=== PATIENT | female | born 1950 | race Caucasian/White ===

== ENCOUNTER 2024-01-18 09:45 | Day surgery (SDC) | payer MEDICARE ==
[~2024-01-18] VITALS: Wt 72.0 kg
[2024-01-18] VITALS (15 sets, daily range): BP systolic 110–159; BP diastolic 42–68; PULSE 59–65; TEMP 97.4–98.1
[~2024-01-18 09:45] MED LIST: ASPIRIN 81M81 MG/TA2 PO; BETAPACE 80MG80 MG PO; CARDIZEM CD 12120 MG PO; K-DUR20 MEQ PO; LASIX 40MG TABL40 MG PO; PROTONIX 40MG T40 MG PO; ROXICODONE 55 MG/TAB PO; ZOFRAN ODT4 MG PO
[2024-01-18] MEDS ORDERED: ceFAZolin 1 G in Water For Injection,Sterile 10 ML IV SCH ×2 (10:00→20:00)
[2024-01-18] MEDS ORDERED: 1/2 NS 1,000 ML IV SCH (10:00)
[2024-01-18] MEDS ORDERED: XANAX XR0.5 MG PO (10:47)
[2024-01-18] MEDS ORDERED: ELIQUIS 5MG PO (10:48)
[2024-01-18] MEDS ORDERED: ELDERBERRY PO (10:48)
[2024-01-18] MEDS ORDERED: KLOR-CON 1010 MEQ PO (10:49)
[2024-01-18] MEDS ORDERED: BETAPACE 80MG80 MG PO (10:51)
[2024-01-18] MEDS ORDERED: CARAFATE 1GM1 G PO (10:51)
[2024-01-18 11:02] LABS: HEMATOCRIT 42.2 % (37.0-47.0); HEMOGLOBIN 14.1 g/dl (12.5-16.0); MEAN CELL VOLUME 90 fl (80.0-100.0); MEAN CORPUSCULAR HEMOGLOBIN 30 pg (27-31); MEAN CORPUSCULAR HGB CONC 33 g/dl (33.0-37.0); MEAN PLATELET VOLUME 10.2 fl (7.4-10.4); PLATELET COUNT 222 K/mm3 (130-400); RED BLOOD COUNT 4.67 M/mm3 (4.10-5.30); REDCELL DISTRIBUTION WIDTH-CV 13.2 % (11.5-14.5)
[2024-01-18 11:14] LABS: PROTHROMBIN TIME 10.8 SECONDS (9.7-12.8)
[2024-01-18 11:30] LABS: CALCIUM 9.6 mg/dL (8.4-10.2); CREATININE, serum 0.68 mg/dL (0.57-1.11)
[2024-01-18] MEDS ORDERED: NS 1,000 ML IV.SOLN. IR SCH (11:52)
--- NOTE | 2024-01-18 12:00 | NUR ---
See Merge report for procedural sedation/notes
[2024-01-18] MEDS ORDERED: Topical Skin Adhesive 1 EACH (1 ML) TOP ONE (12:05)
[2024-01-18] MEDS ORDERED: fentaNYL 50 MCG/ML 2 ML VIAL IV SCH (12:26)
[2024-01-18] MEDS ORDERED: Midazolam 2 MG/2 ML VIAL IV SCH (12:27)
--- NOTE | 2024-01-18 12:50 | NUR ---
REPORT RECIEVED FROM KARELY THOMAS.
[2024-01-18] MEDS ORDERED: Bisacodyl 5 MG TAB PO PRN (13:00)
[2024-01-18] MEDS ORDERED: Acetaminophen 500 MG TAB PO PRN (13:15)
[2024-01-18] MEDS ORDERED: Ondansetron 4 MG/2 ML VIAL IV PRN (13:15)
[2024-01-18] MEDS ORDERED: Magnes Hydrox (MOM) 80 MG/ML 30 ML CUP PO PRN (13:15)
--- NOTE | 2024-01-18 13:40 | NUR ---
PT ARRIVED TO ROOM 316. SHIFT ASSESSMENT COMPLETED AT THIS TIME, PT A&OX4. X2 DRESSINGS ON CHEST, CLEAN DRY AND INTACT. PT REPORTS 5/10 PAIN LOCATED IN THE LEFT ARM . PRN TYLENOL ADMINISTERED AT THIS TIME.
--- NOTE | 2024-01-18 14:00 | NUR ---
PT REPORTS PAIN 7/10 AND NOT GETTING BETTER AFTER PRN TYELNOL WAS ADMINSTERED. DR. GALLO NOTIFIED. NEW ORDERS RECIEVED. PRN TRAMADOL ADMINISTERED AT THIS TIME. CALL LIGHT WITHIN REACH. BED IN LOWEST POSITION.
[2024-01-18] MEDS ORDERED: traMADol 50 MG TAB PO PRN (14:15)
[2024-01-18] MEDS ORDERED: Sucralfate 1 G TAB PO SCH (16:30)
--- NOTE | 2024-01-18 16:30 | NUR ---
PT REPORTS 1/10 PAIN AT THIS TIME. PT REPORTS PRN PAIN MEDICATION WORKED AND SHE IS COMFORTABLE RESTING IN BED. CALL LIGHT WIABELINOIN REACH. BED IN LOWEST POSTION.
--- NOTE | 2024-01-18 18:40 | NUR ---
report received from ester soto. pt resting in bed watching tv. pt reports pain has been controlled with prn tramadol given on previous shift. call light in reach. all needs met at this time.
--- NOTE | 2024-01-18 20:13 | NUR ---
shift assessment complete, see documentation. pt tolerated hs meds well. pt reporting 3/10 left shoulder pain. pt refuses PRN for now. call light in reach. all needs met at this time.
[2024-01-18] MEDS ORDERED: Apixaban 5 MG TABLET PO SCH (21:00)
[2024-01-18] MEDS ORDERED: Melatonin 3 MG TAB PO PRN (21:00)
[2024-01-18] MEDS ORDERED: ALPRAZolam 0.5 MG TAB PO SCH (21:00)
--- NOTE | 2024-01-19 00:51 | NUR ---
pt reporting 7/10 left shoulder pain. prn tramadol administered per orders. new ice pack placed.
[2024-01-19 01:09] VITALS: BP_SYST 110
[2024-01-19 04:26] VITALS: BP 103/47; PULSE 60; TEMP 97.7
[2024-01-19 04:31] VITALS: BP_SYST 103
[2024-01-19 05:41] LABS: BASO # 0.1 K/mm3 (0.0-0.2); BASO % 0.6 % (0.0-2.0); EOS # 0.1 K/mm3 (0.0-0.7); EOS % 1.2 % (0.0-4.0); GRAN # 3.9 K/mm3 (1.4-6.5); GRAN % 46.2 % (42.2-75.2); HEMATOCRIT 38.9 % (37.0-47.0); HEMOGLOBIN 12.9 g/dl (12.5-16.0); LYMPH # 3.7 K/mm3 (1.2-3.4); LYMPH % 43.1 % (20.0-51.0); MEAN CELL VOLUME 93 fl (80.0-100.0); MEAN CORPUSCULAR HEMOGLOBIN 31 pg (27-31); MEAN CORPUSCULAR HGB CONC 33 g/dl (33.0-37.0); MEAN PLATELET VOLUME 10.2 fl (7.4-10.4); MONO # 0.7 K/mm3 (0.1-0.6); MONO % 8.5 % (1.7-9.3); PLATELET COUNT 201 K/mm3 (130-400); RED BLOOD COUNT 4.19 M/mm3 (4.10-5.30); REDCELL DISTRIBUTION WIDTH-CV 13.4 % (11.5-14.5)
[2024-01-19 06:03] LABS: CREATININE, serum 0.7 mg/dL (0.57-1.11); POTASSIUM 3.8 mEq/L (3.5-4.5)
--- NOTE | 2024-01-19 07:00 | NUR ---
BEDSIDE SHIFT REPORT RECIEVED AT THIS TIME.
[2024-01-19 07:30] VITALS: BP 117/72; PULSE 59; TEMP 97.5
--- NOTE | 2024-01-19 08:34 | NUR ---
SHIFT ASSESSMENT COMPLETED AT THIS TIME. PT A&OX4. PT DENIES PAIN, NAUSEA AND SOB. MORNING MEDICATIONS ADMINISTERED WITHOUT COMPLICATIONS. CALL LIGHT WITHIN REACH.
[2024-01-19] MEDS ORDERED: Furosemide 40 MG TAB PO SCH (09:00)
[2024-01-19 09:38] VITALS: BP_SYST 117
[2024-01-19] MEDS ORDERED: CEPHALEXIN500 M1 PO (09:51)
[2024-01-19] MEDS ORDERED: ULTRAM 50MG TAB50 MG PO (09:52)
[2024-01-19] MEDS ORDERED: BETAPACE 80MG80 MG PO (09:52)
[2024-01-19] MEDS ORDERED: TYLENOL 500MG500 MG PO (09:53)
--- NOTE | 2024-01-19 11:01 | NUR ---
SW met with patient to complete initial assessment for discharge planning. Patient verified that she lives in [place] with her Aydin ([phone]) who is at bedside. Patient sees Dr. Hein as her PCP and uses [facility]. Patient lists her Aydin as her DPOA and her daughter Isaac Medrano as alternate. Patient denies using any DME and is independent with all activities. Patient is discharging to home today with her to drive. Discharge plan: Home
--- NOTE | 2024-01-19 11:17 | NUR ---
DISCHARGE ORDERS RECIEVED. DISCHARGE INSTRUCTIONS AND EDUCATION PROVIDED AT THIS TIME. THIS NURSE REINFORCED EDUCATION REGARDING THE SLING AND NO NEED TO WEAR IT DURING THE DAY. PT VOICED UNDERSTANDING AND REPORTS NO QUESTIONS OR CONCERNS AT THIS TIME. TELE DC'S. INT DC'D. CALL LIGHT WITHIN REACH.
--- NOTE | 2024-01-19 11:20 | NUR ---
PT TRANSPORTED VIA WHEELCHAIR TO PRIVATE VEHICLE WITH AND DISCHARGED HOME.
[2024-01-19] MEDS ORDERED: Cephalexin 500 MG CAP PO SCH (21:00)
== END 2024-01-19 11:15 | disposition home or self-care (01) ==
LOC: COL.CAR 09:45 → MEDICAL 13:30 → COL.CAR 01-19 11:15
PROVIDERS: Internal Medicine Cardiovascular Disease
DX: I49.5 Sick sinus syndrome (principal); I48.0 Paroxysmal atrial fibrillation; Z45.09 Encounter for adjustment and management of other cardiac device; Z79.01 Long term (current) use of anticoagulants; Z79.899 Other long term (current) drug therapy
CPT/HCPCS: OP; C1769; C1785; C1894; C1898; J0665-JZ; J0690; J2250; J3010; J7030